=== PATIENT | female | born 1960 | race Caucasian/White ===

== ENCOUNTER 2016-11-26 09:17 | Emergency (ER) | payer OTHER ==
[~2016-11-26 09:17] MED LIST: ALIVE WOMEN'S1 EAC1 PO; PRINIVIL5 M1 PO; SYNTHROID125 MC1 PO; TYLENOL ARTHRI650 M1; TYLENOL PM EX-1 EAC4 PO; VITAMIN D1000 UNI3 PO
[2016-11-26 10:23] LABS: CREATININE 0.79 mg/dl (0.67-1.17); eGFR VALUE FOR BLACK >90 mL/Min
[2016-11-26 11:14] LABS: URINE BILIRUBIN NEGATIVE (NEG); URINE BLOOD SMALL (NEG); URINE GLUCOSE (UA) NEGATIVE (NEG); URINE KETONE NEGATIVE (NEG); URINE LEUKOCYTE ESTERASE POSITIVE (NEG); URINE NITRITE NEGATIVE (NEG); URINE PROTEIN SMALL (NEG)
[2016-11-26 11:16] LABS: URINE APPEARANCE HAZY; URINE COLOR YELLOW
[2016-11-26 11:29] LABS: URINE EPITHELIAL CELLS 15-20 /[HPF] (0-10)
[2016-11-26 11:30] LABS: URINE BACTERIA 1+
[2016-11-26 11:31] LABS: URINE MUCUS 1+
[2016-11-26] MEDS ORDERED: MACROBID 100 M100 M1 PO (12:33)
[2016-11-26] MEDS ORDERED: FLOMAX0.4 M1 PO (12:33)
[2016-11-26] MEDS ORDERED: NORCO 5-325 TA1 EACH PO (12:33)
[2016-11-26] MEDS ORDERED: ZOFRAN4 M2 PO (12:33)
== END 2016-11-26 13:47 ==
LOC: EDMED 09:17
PROVIDERS: Emergency Medicine
DX: N13.2 Hydronephrosis with renal and ureteral calculous obstruction (principal); Z87.442 Personal history of urinary calculi
CPT/HCPCS: J1170; J1885; J2405; J7030